=== PATIENT | male | born 1990 | race Caucasian/White ===

== ENCOUNTER 2020-08-18 19:05 | Emergency (ER) | payer OTHER ==
[~2020-08-18] VITALS: Ht 170.2 cm; Wt 90.7 kg
== END 2020-08-18 21:25 | disposition home or self-care (01) ==
LOC: ED 19:05
DX: S51.811A Laceration without foreign body of right forearm, initial encounter (principal); Z23 Encounter for immunization; W26.0XXA Contact with knife, initial encounter
CPT/HCPCS: 90471; 90715; 99282